=== PATIENT | male | born 1980 | race Caucasian/White ===

== ENCOUNTER 2023-11-10 17:12 | Emergency (ER) | payer OTHER ==
[~2023-11-10] VITALS: Ht 180.3 cm; Wt 125.6 kg
[~2023-11-10 17:12] MED LIST: CLON-575 PO; PARO30TA22 PO
[2023-11-10 17:21] VITALS: BP 103/76; PULSE 85; RESP 16; TEMP 98; O2SAT 99
[2023-11-10] MEDS ORDERED: CLON0.5T PO (17:56)
== END 2023-11-10 17:45 | disposition home or self-care (01) ==
LOC: MED 17:12
DX: F41.9 Anxiety disorder, unspecified (principal); Z76.0 Encounter for issue of repeat prescription; Z79.899 Other long term (current) drug therapy
CPT/HCPCS: 99281